=== PATIENT | female | born 1985 | race Caucasian/White ===

== ENCOUNTER 2017-08-20 15:22 | Emergency (ER) | payer BC ==
--- NOTE | 2017-08-20 17:25 | RAD ---
HISTORY: Left arm and tongue numbness, headache COMPARISONS: None TECHNIQUE: Multiple contiguous axial CT scans were obtained of the head without intravenous contrast. FINDINGS: HEMORRHAGE/INFARCT: There is no hemorrhage or acute infarct. MASSES/SHIFT: There is no mass or shift. EXTRA-AXIAL SPACES: There are no extra-axial fluid collections. SULCI AND VENTRICLES: The sulci and ventricles are normal in size and position for the patient's stated age. CEREBRUM: There are no focal parenchymal abnormalities. BRAINSTEM: There are no focal parenchymal abnormalities. CEREBELLUM: There are no focal parenchymal abnormalities. VESSELS: The vessels are grossly normal. PARANASAL SINUSES: The paranasal sinuses are clear. ORBITS: The orbits are unremarkable. BONES AND SOFT TISSUE: No bone or soft tissue abnormalities are noted. OTHER: None IMPRESSION: NO ACUTE INTRACRANIAL PATHOLOGY.
[2017-08-20 19:00] LABS: ABS Basophils 0.1 10^3/ul (0-0.2); ABS Eosinophils 0.1 10^3/ul (0-0.6); ABS Lymphocytes 2.6 10^3/ul (1.0-4.8); ABS Monocytes 0.6 10^3/ul (0-0.8); ABS Nucleated RBC 0 10^3/ul; Eosinophil % 1.1 % (0-6); Hematocrit 41 % (35-47); Hemoglobin 13.7 g/dl (12.0-16.0); Lymphocyte % 22.5 % (25-47); Mean Corpuscular HGB Conc 34 g/dl (31-36); Mean Corpuscular Hemoglobin 29 pg (27-31); Mean Corpuscular Volume 87 fL (80-97); Mean Platelet Volume 8 um3 (7.4-10.4); Nucleated Red Blood Cells % 0.1; Platelet Count 340 10^3/ul (150-450); Red Blood Count 4.72 10^6/ul (4.0-5.4); Red Cell Distribution Width 13 % (10.5-15); White Blood Count 11.4 10^3/ul (3.5-10.8)
[2017-08-20 19:10] LABS: INR 1.05 (0.77-1.02)
[2017-08-20 19:15] LABS: EGFR Non-African American 81.3 (>60)
--- NOTE | 2017-08-20 20:39 | ED ---
Dominguez Leung Natalie, scribed for Usman Maciel MD on 08/20/17 at 1958 . Headache - HPI Summary HPI Summary: The pt is a 31 y/o F presenting to the ED c/o vision changes and extremity numbness starting at 13:00. The pt recently started an intense workout program in the last four weeks that involves heavy use of shoulders and back. Today during her workout, she pulled a muscle in the back of her right leg during a deadlift. About 30 minutes later while the pt was driving to work, she got a frontal headache, her eyes became sensitive to light and there was a spot missing from her vision. Then the pts left arm became numb and slightly swollen for 15 minutes, and shortly after, the back of her tongue became numb. The pt called her PCP who told her to come here. While in the waiting room, the pts right hand became numb after coughing. Her headache worsened throughout the day , and her vision became more normally, but currently her headache is only temporal and the ceiling lines get wiggly and its fuzzy. The pain from her headache is 7/10. The patient has treated the pain with 600mg Ibuprofen at 14:00. Pt additionally c/o tightness in neck and congestion. Pt denies CP, neck pain, and changes in urination and BM. The pt has hx of headaches and vertigo, but she hasnt had numbness symptoms before. She uses an Albuterol inhaler. - History Of Current Complaint Chief Complaint: EDHeadache Stated Complaint: LT ARM & TONGUE NUMBNESS Time Seen by Provider: 08/20/17 19:39 Hx Obtained From: Patient Onset/Duration: Sudden Onset, Started hours ago - at 13:00, Still Present Currently Pain Is: Current Pain Scale(0-10)= - 7/10 Location of Headache: Frontal, Temporal Aggravating Factor: Nothing Allevating Factors: Nothing Associated Signs And Symptoms: Neck Stiffness, Visual Changes - sensitivity to light, missing spots, fuzzy, Other (Noted In Comments) - POSITIVE: congestion; NEGATIVE: CP, changes in urination and BM, neck pain - Allergies/Home Medications Allergies/Adverse Reactions: Allergies Allergy/AdvReac Type Severity Reaction Status Date / Time Amoxicillin Allergy Unknown Verified 08/20/17 15:40 Reaction Details Chamomile Allergy Unknown Verified 08/20/17 15:40 Reaction Details PMH/Surg Hx/FS Hx/Imm Hx Endocrine/Hematology History: Denies: Hx Diabetes Cardiovascular History: Denies: Hx Hypertension Neurological History: Reports: Hx Headaches - Immunization History Date of Tetanus Vaccine: UTD Date of Influenza Vaccine: NO Infectious Disease History: No Infectious Disease History: Denies: Traveled Outside the [place] in Last 30 Days - Family History Known Family History: Positive: Cardiac Disease - grandmother and granfater, Hypertension Negative: Diabetes - Social History Alcohol Use: None Substance Use Type: Reports: None Smoking Status (MU): Former Smoker Review of Systems Positive: Other - light sensitivity, "missing spots", fuzzy vision Positive: Other - nasal congestion Negative: Chest Pain Positive: Other - normal BM Genitourinary: Other - normal urination Positive: Other - POSITIVE: soreness in upper right leg, neck stiffness; NEGATIVE; neck pain Positive: Headache, Numbness - in left arm, right hand, back of tongue All Other Systems Reviewed And Are Negative: Yes Physical Exam Triage Information Reviewed: Yes Vital Signs On Initial Exam: Initial Vitals Temp Pulse Resp BP Pulse Ox 98.1 F 92 18 129/90 97 08/20/17 15:34 08/20/17 15:34 08/20/17 15:34 08/20/17 15:34 08/20/17 15:34 Vital Signs Reviewed: Yes Appearance: Positive: Well-Appearing, No Pain Distress Skin: Positive: Warm, Skin Color Reflects Adequate Perfusion, Dry Head/Face: Positive: Normal Head/Face Inspection Eyes: Positive: EOMI, CHIARA ENT: Positive: Normal ENT inspection Neck: Positive: Supple, Nontender Respiratory/Lung Sounds: Positive: Clear to Auscultation, Breath Sounds Present Cardiovascular: Positive: RRR Abdomen Description: Positive: Nontender, Soft Bowel Sounds: Positive: Present Musculoskeletal: Positive: Normal, Strength/ROM Intact Neurological: Positive: Normal, Sensory/Motor Intact, Alert, Oriented to Person Place, Time Psychiatric: Positive: Affect/Mood Appropriate - Campbell Coma Scale Coma Scale Total: 15 Diagnostics - Vital Signs Vital Signs Temp Pulse Resp BP Pulse Ox 08/20/17 18:44 97.4 F 69 16 137/88 100 08/20/17 17:12 98.1 F 83 16 118/74 99 08/20/17 15:34 98.1 F 92 18 129/90 97 - Laboratory Lab Results: Lab Results 08/20/17 08/20/17 08/20/17 Range/Units 18:48 18:48 18:48 WBC 11.4 H (3.5-10.8) 10^3/ul RBC 4.72 (4.0-5.4) 10^6/ul Hgb 13.7 (12.0-16.0) g/dl Hct 41 (35-47) % MCV 87 (80-97) fL MCH 29 (27-31) pg MCHC 34 (31-36) g/dl RDW 13 (10.5-15) % Plt Count 340 (150-450) 10^3/ul MPV 8 (7.4-10.4) um3 Neut % (Auto) 70.2 (38-83) % Lymph % (Auto) 22.5 L (25-47) % [place] % (Auto) 5.7 (1-9) % Eos % (Auto) 1.1 (0-6) % Baso % (Auto) 0.5 (0-2) % Absolute Neuts (auto) 8.0 H (1.5-7.7) 10^3/ul Absolute Lymphs (auto) 2.6 (1.0-4.8) 10^3/ul Absolute Monos (auto) 0.6 (0-0.8) 10^3/ul Absolute Eos (auto) 0.1 (0-0.6) 10^3/ul Absolute Basos (auto) 0.1 (0-0.2) 10^3/ul Absolute Nucleated RBC 0 10^3/ul Nucleated RBC % 0.1 INR (Anticoag Therapy) 1.05 H (0.77-1.02) APTT 31.9 (26.0-36.3) seconds Sodium 135 (133-145) mmol/L Potassium 3.7 (3.5-5.0) mmol/L Chloride 101 (101-111) mmol/L Carbon Dioxide 27 (22-32) mmol/L Anion Gap 7 (2-11) mmol/L BUN 13 (6-24) mg/dL Creatinine 0.83 (0.51-0.95) mg/dL Est GFR ( Amer) 104.5 (>60) Est GFR (Non-Af Amer) 81.3 (>60) BUN/Creatinine Ratio 15.7 (8-20) Glucose 101 H (70-100) mg/dL Calcium 9.9 (8.6-10.3) mg/dL Total Bilirubin 0.30 (0.2-1.0) mg/dL AST 20 (13-39) U/L ALT 24 (7-52) U/L Alkaline Phosphatase 62 (34-104) U/L Total Protein 7.7 (6.4-8.9) g/dL Albumin 4.4 (3.2-5.2) g/dL Globulin 3.3 (2-4) g/dL Albumin/Globulin Ratio 1.3 (1-3) Beta HCG, Quant < 0.60 mIU/mL Result Diagrams: 08/20/17 18:48 08/20/17 18:48 Lab Statement: Any lab studies that have been ordered have been reviewed, and results considered in the medical decision making process. - CT Brain CT CT Interpretation: No Acute Changes - No acute intracranial pathology. ED physician has reviewed this report. CT Interpretation Completed By: Radiologist Headache Course/Dx - Course Course Of Treatment: DISCUSSED WITH DR LUNA, NEUROLOGY. SX CONSISTENT WITH MIGRAINE WITH LUCA. SX IMPROVED IN ED. NO NEUROLOGIC DEFICIT IN ED. VARELA DECREASED TO 3/10. F/U PMD; NEUROLOGY; RETURN IF WORSE. - Diagnoses Provider Diagnoses: Migraine headache with aura Discharge - Discharge Plan Condition: Stable Disposition: HOME Patient Education Materials: Migraine Headache (ED) Referrals: Brigitte Caldera MD [Primary Care Provider] - Sunny Luna MD [Medical Doctor] - Additional Instructions: FOLLOW UP WITH DOCTOR. FOLLOW UP WITH NEUROLOGY. YOUR CASE WAS DISCUSSED WITH DR LUNA. RETURN TO THE EMERGENCY DEPARTMENT FOR ANY WORSENING OF YOUR CONDITION; WEAKNESS , NUMBNESS, CHANGES IN VISION OR SPEECH OR QUESTIONS OR CONCERNS. The documentation as recorded by the Dominguez dorsey Natalie accurately reflects the service I personally performed and the decisions made by me, Usman Maciel MD.
[2017-08-20 20:43] VITALS: BP 131/75
== END 2017-08-20 20:47 | disposition home or self-care (01) ==
LOC: ED 15:22
DX: G43.109 Migraine with aura, not intractable, without status migrainosus (principal); R09.81 Nasal congestion; Z87.891 Personal history of nicotine dependence
CPT/HCPCS: 36415; 70450; 80053; 84702; 85025; 85610; 85730; 99282